=== PATIENT | female | born 1975 | race Caucasian/White ===

== ENCOUNTER 2017-09-30 14:00 | Outpatient (RCR) | payer OTHER ==
[~2017-09-30 14:00] MED LIST: ADALAT PO; ASPIRIN 32325 MG/TAB PO; BENADRYL25 M1 PO; CEFTIN500 MG PO; FLEXERIL 1010 MG/TAB PO; METHYLDOPA PO; NORCO 325 MG-7.1 TAB PO; PRENATAL1 TA6 PO; [UNRECOGNIZED DRUG - OTHER] PO
== END 2017-12-09 ==
LOC: MKS.ESL.PT
DX: M54.5 Low back pain (principal)
CPT/HCPCS: G0283-GP

== ENCOUNTER 2019-07-05 16:47 | Emergency (ER) | payer OTHER ==
[~2019-07-05] VITALS: Ht 170.2 cm; Wt 118.2 kg
[2019-07-05 16:52] VITALS: TEMP 97.9
[2019-07-05 17:54] LABS: BASO # 0.1 (0.0-0.2); BASO % 0.5 % (0.0-2.0); EOS # 0.1 (0.0-0.7); EOS % 0.8 % (0-4.0); GRAN # 10.1 (1.4-6.5); GRAN % 77.7 % (42.2-75.2); HEMATOCRIT 41.3 % (37.0-47.0); HEMOGLOBIN 13.1 g/dl (12.5-16.0); LYMPH # 1.8 (1.2-3.4); LYMPH % 14.2 % (20.0-51.0); MEAN CELL VOLUME 77 fl (80.0-100.0); MEAN CORPUSCULAR HEMOGLOBIN 24 pg (27.0-31.0); MEAN CORPUSCULAR HGB CONC 32 g/dl (33.0-37.0); MEAN PLATELET VOLUME 11.2 fl (7.4-10.4); MONO # 0.8 (0.1-0.6); MONO % 6.1 % (1.7-9.3); PLATELET COUNT 272 K/mm3 (130-400); RED BLOOD COUNT 5.36 M/mm3 (4.10-5.30); REDCELL DISTRIBUTION WIDTH-CV 16.1 % (11.5-14.5)
[2019-07-05 18:07] LABS: ALANINE AMINOTRANSFERASE 23 U/L (9-52); ALBUMIN 4.6 gm/dL (3.5-5.0); ALKALINE PHOSPHATASE 93 U/L (50-136); ANION GAP 13 mmol/L (7-16); AST,SGOT 23 U/L (15-37); BILIRUBIN,TOTAL 0.5 mg/dL (0.0-1.0); BLOOD UREA NITROGEN 16 mg/dL (7-17); CALCIUM 9.2 mg/dL (8.4-10.2); CARBON DIOXIDE 27 mmol/L (22-30); CHLORIDE 101 mmol/L (98-107); CREATININE, serum 0.77 (0.52-1.25); GLUCOSE 111 mg/dL (74-106); LIPASE 88 U/L (23-300); POTASSIUM 3.2 mmol/L (3.4-5.0); SODIUM 142 mmol/L (137-145); TOTAL PROTEIN 8.1 gm/dL (6.4-8.2)
[2019-07-05 18:19] LABS: TROPONIN-I < 0.012 ng/mL (0.000-0.035)
[2019-07-05 18:45] LABS: COLLECTION METHOD CLEAN CATCH
[2019-07-05 18:52] LABS: MUCOUS Present /lpf; PH 5 (5-8); SQUAMOUS EPITHELIAL 0-2 /hpf; URINE APPEARANCE Cloudy; URINE BACTERIA Rare /hpf; URINE BILIRUBIN Negative (NEGATIVE); URINE BLOOD Negative (NEGATIVE); URINE COLOR Yellow; URINE GLUCOSE Negative (NEGATIVE); URINE KETONE Negative (NEGATIVE); URINE LEUKOCYTE ESTERASE Negative (NEGATIVE); URINE NITRATE Negative (NEGATIVE); URINE PROTEIN(semi-quant) Negative (NEGATIVE); URINE RBC 0-2 /hpf; URINE UROBILINOGEN Negative (NEGATIVE)
[2019-07-05] MEDS ORDERED: DOXYCYCLINE 10100 MG PO (19:47)
[2019-07-05 20:18] VITALS: BP 139/78; PULSE 72
== END 2019-07-05 20:21 | disposition home or self-care (01) ==
LOC: COL.ER 16:47
PROVIDERS: Nurse Practitioner
DX: J18.9 Pneumonia, unspecified organism (principal); R10.12 Left upper quadrant pain; I10 Essential (primary) hypertension; Z88.1 Allergy status to other antibiotic agents; Z98.890 Other specified postprocedural states
CPT/HCPCS: J2270; J7030; Q9967

== ENCOUNTER 2020-04-23 19:16 | Emergency (ER) | payer OTHER ==
[~2020-04-23] VITALS: Ht 170.2 cm; Wt 113.6 kg
[~2020-04-23 19:16] MED LIST changes: +DOXYCYCLINE 10100 MG PO
[2020-04-23 19:30] VITALS: TEMP 98
[2020-04-23] MEDS ORDERED: HCTZ 25MG TAB25 MG PO (19:34)
[2020-04-23] MEDS ORDERED: TENORMIN 2525 MG/TAB PO (19:35)
[2020-04-23] MEDS ORDERED: AMOXICILLIN 8751 TAB PO (20:19)
[2020-04-23 20:55] VITALS: BP 137/67; PULSE 69
== END 2020-04-23 20:56 | disposition home or self-care (01) ==
LOC: COL.ER 19:16
DX: S61.432A Puncture wound without foreign body of left hand, initial encounter (principal); F17.200 Nicotine dependence, unspecified, uncomplicated; Z88.8 Allergy status to other drugs, medicaments and biological substances; W54.0XXA Bitten by dog, initial encounter; Y92.009 Unspecified place in unspecified non-institutional (private) residence as the place of occurrence of the external cause